=== PATIENT | male | born 1950 | race Caucasian/White ===

== ENCOUNTER 2016-07-25 13:27 | Inpatient (IN) | payer MEDICARE, MEDICAID ==
[~2016-07-25 13:27] MED LIST: Albuterol/Ipratropium 3.0-0.5 MG/3 ML Neb Soln ONE
[2016-07-25] MEDS ORDERED: Albuterol/Ipratropium 3.0-0.5 MG/3 ML Neb Soln NEB ONE ×2 (13:45→15:30)
--- NOTE | 2016-07-25 13:48 | EDM.PDOC ---
ED HPI GENERAL MEDICAL PROBLEM - General Chief Complaint: Respiratory Problem Stated Complaint: CHEST PAINS Time Seen by Provider: 07/25/16 13:28 Source of Information: Reports: Patient, Other (This provider--I was his attending provider in [place] last 48 hours while he was an inpatient) - History of Present Illness INITIAL COMMENTS - FREE TEXT/NARRATIVE: Presents to the ER reporting shortness of breath. This patient is well-known to me. On Sunday, the patient presented to the hospital and [place] where I was the attending provider. He told the nursing staff that he did not want to be seen or treated he only wanted to lay on the floor in the waiting room. The nursing staff convinced him to, and to the emergency room which he did. He was evaluated and found to be hypoxic with oxygen saturations in the low 70s and severely dyspneic. At first he refused all care but I went in and visited with him and outlined the severity of his symptoms. He then was treated with oxygen, a DuoNeb treatment, IV Solu-Medrol, IV Lasix. Throughout Sunday, July 23, 2016 the patient was hospitalized and was compliant with the course of treatment which included IV fluids do to his elevated BUN, IV Lasix do to his elevated BNP of 1269, Solu-Medrol and duonebs for his emphysema exacerbation per chest X-ray. He was not febrile and his white count was normal but he did have a productive cough with yellow sputum and thus he was started on Rocephin IV along with by mouth azithromycin. He was continued on his supplemental oxygen which kept his saturations in the low to mid 90s and his respiratory rate in the low 20s. His Toponin was negative and his EKG indicated no acute changes however there were Q waves in the inferior leads indicating a possible GA of indeterminate age. On admission the patient told us that he had not had medical care for 35 years except for 3 years ago he saw someone about a knee problem. He does not know of any medical problems. He has smoked for 55 years however he states that 3 years ago he weighed well over 350 pounds and he decided he wanted to lose weight so he put himself on a diet and lost 200 pounds. He also states that once he tried to quit smoking which he was successful with but restarted 6 months later. He states that he has a residence in [place] [facility] but really just travels around and lives in his pickup. 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 Yesterday, I was called by the hospital nurses who reported that the patient was refusing to wear his oxygen, get his respiratory treatments and take any medications. I went in and visited with the patient who was contankerous and unrealistic but stated he was acting that way because he was coughing so much "he couldn't even pee" I negotiated with him and he took some cough syrup and then wore his oxygen for about 3 hours. I was then called again because he was again refusing to wear his oxygen or take any medications and treatments. Nursing staff called a friend of his to lives in [place] who knows the patient. The friend stated that the patient is known to be stubborn and cantankerous and that he could not talk any sense into him either. I was able to get the patient to agree to take some IV medications as he told me that all oral medications are "poisons". This morning when I went to see the patient at the hospital the nursing staff told me that they had been able to get him one dose of 1 mg of IV Ativan last evening after which he slept for an hour or 2. Then he signed himself out AMA and slept in his pickup truck and the hospital parking lot for the rest of the night. This morning he was observed driving away. Law enforcement was notified as he was not safe to be driving. He was quite surprised to see me here. Apparently he got a friend to drive him over here after law enforcement stopped him this morning. I did visit with the friend who tells me that the patient is known to be very stubborn and cantankerous. He verified that the [place] [facility] and [place] had been staying in a little [place] a [place] of [facility]. The friend states that all the way over here he told the patient that he must follow the course of treatment or no one would be able to help him with his breathing problem. - Related Data Allergies Allergy/AdvReac Type Severity Reaction Status Date / Time No Known Allergies Allergy Verified 07/25/16 13:33 Home Meds: Home Meds . [No Known Home Meds] 07/25/16 [History] ED ROS GENERAL - Review of Systems Review Of Systems: See Below Constitutional: Denies: fever HEENT: Reports: No symptoms Respiratory: Reports: Shortness of Breath, Wheezing, Cough, Sputum Cardiovascular: Reports: No symptoms, Blood pressure problem. Denies: Chest pain Endocrine: Reports: no symptoms GI/Abdominal: Reports: No symptoms, Melena : Reports: no symptoms Musculoskeletal: Reports: shoulder pain (The patient states that he has had black diarrhea stool once a day for the last year. When he was hospitalized he did have a bowel movement but he would not let anyone look at) Skin: Reports: no symptoms Neurological: Reports: No Symptoms Psychiatric: Reports: No symptoms Hematologic/Lymphatic: Reports: no symptoms Immunologic: Reports: no symptoms ED EXAM, GENERAL - Physical Exam Exam: See Below Exam Limited By: No limitations General Appearance: alert, no apparent distress Ears: normal external exam Nose: normal inspection Throat/Mouth: Normal inspection Head: atraumatic, normocephalic Neck: normal inspection, full range of motion Respiratory/Chest: respiratory distress, decreased breath sounds, rhonchi, wheezing, accessory muscle use Cardiovascular: normal peripheral pulses, regular rate, rhythm, no murmur GI/Abdominal: Soft Back Exam: normal inspection Extremities: normal inspection, normal range of motion, no pedal edema Neurological: alert, oriented, other (He was visiting and laughing with the friend brought him in despite his dyspnea) Psychiatric: normal affect, normal mood Skin Exam: Warm, Dry, Intact, No rash Course - Vital Signs Last Recorded V/S: Last Vital Signs Temp 37.1 C 07/25/16 13:29 Pulse 88 07/25/16 14:47 Resp 20 07/25/16 14:47 BP 124/96 H 07/25/16 14:47 Pulse Ox 95 07/25/16 14:47 - Orders/Labs/Meds Orders: Active Orders 24 hr Category Date Time Status EKG Documentation Completion [RC] STAT Care 07/25/16 13:31 Ordered RT Aerosol Therapy [RC] ASDIRECTED Care 07/25/16 15:30 Active RT Aerosol Therapy [RC] ASDIRECTED Care 07/25/16 15:32 Active Chest 2V [CR] Stat Exams 07/25/16 15:00 Ordered Labs: Laboratory Tests 07/25/16 07/25/16 07/25/16 Range/Units 13:20 13:20 13:20 WBC 10.69 (4.0-11.0) K/uL RBC 4.80 (4.50-5.90) M/uL Hgb 15.7 (13.0-17.0) g/dL Hct 48.1 (38.0-50.0) % MCV 100.2 H (80.0-98.0) fL MCH 32.7 H (27.0-32.0) pg MCHC 32.6 (31.0-37.0) g/dL RDW Std Deviation 45.5 (28.0-62.0) fl RDW Coeff of Joni 12 (11.0-15.0) % Plt Count 249 (150-400) K/uL MPV 10.00 (7.40-12.00) fL Add Manual Diff YES Neutrophils % (Manual) 71 (48.0-80.0) % Band Neutrophils % 5 % Lymphocytes % (Manual) 19 (16.0-40.0) % Monocytes % (Manual) 5 (0.0-15.0) % Nucleated RBC % 0.0 /100WBC Absolute Seg Neuts 7.6 Band Neutrophils # 0.5 Lymphocytes # (Manual) 2.0 Monocytes # (Manual) 0.5 Nucleated RBCs # 0 K/uL Sodium 146 (136-146) mmol/L Potassium 4.4 (3.5-5.1) mmol/L Chloride 104 (98-110) mmol/L Carbon Dioxide 31 (21-31) mmol/L BUN 38 H (6.0-23.0) mg/dL Creatinine 0.8 (0.6-1.5) mg/dL Est Cr Clr Drug Dosing TNP Estimated GFR (MDRD) > 60.0 ml/min Glucose 122 H (60-110) mg/dL Calcium 9.8 (8.8-10.8) mg/dL Total Bilirubin 0.6 (0.1-1.5) mg/dL AST 48 H (5-40) IU/L ALT 51 (8-54) IU/L Alkaline Phosphatase 54 (40-150) Troponin I (0.0-0.29) NG/ML B-Natriuretic Peptide 344 H (<100) PG/ML Total Protein 7.3 (6.0-8.0) g/dL Albumin 4.1 (3.4-4.8) g/dL Globulin 3.2 (2.0-3.5) g/dL Albumin/Globulin Ratio 1.3 (1.3-2.8) 07/25/16 Range/Units 13:20 WBC (4.0-11.0) K/uL RBC (4.50-5.90) M/uL Hgb (13.0-17.0) g/dL Hct (38.0-50.0) % MCV (80.0-98.0) fL MCH (27.0-32.0) pg MCHC (31.0-37.0) g/dL RDW Std Deviation (28.0-62.0) fl RDW Coeff of Joni (11.0-15.0) % Plt Count (150-400) K/uL MPV (7.40-12.00) fL Add Manual Diff Neutrophils % (Manual) (48.0-80.0) % Band Neutrophils % % Lymphocytes % (Manual) (16.0-40.0) % Monocytes % (Manual) (0.0-15.0) % Nucleated RBC % /100WBC Absolute Seg Neuts Band Neutrophils # Lymphocytes # (Manual) Monocytes # (Manual) Nucleated RBCs # K/uL Sodium (136-146) mmol/L Potassium (3.5-5.1) mmol/L Chloride (98-110) mmol/L Carbon Dioxide (21-31) mmol/L BUN (6.0-23.0) mg/dL Creatinine (0.6-1.5) mg/dL Est Cr Clr Drug Dosing Estimated GFR (MDRD) ml/min Glucose (60-110) mg/dL Calcium (8.8-10.8) mg/dL Total Bilirubin (0.1-1.5) mg/dL AST (5-40) IU/L ALT (8-54) IU/L Alkaline Phosphatase (40-150) Troponin I < 0.10 (0.0-0.29) NG/ML B-Natriuretic Peptide (<100) PG/ML Total Protein (6.0-8.0) g/dL Albumin (3.4-4.8) g/dL Globulin (2.0-3.5) g/dL Albumin/Globulin Ratio (1.3-2.8) Meds: Medications Discontinued Medications Generic Name Dose Route Start Last Admin Trade Name Albaro PRN Reason Stop Dose Admin Albuterol/Ipratropium 3 ml 07/25/16 15:30 07/25/16 15:31 Duoneb 3.0-0.5 Mg/3 Ml NEB 07/25/16 15:31 3 ml ONETIME ONE Administration Albuterol/Ipratropium 3 ml 07/25/16 13:45 07/25/16 13:43 Duoneb 3.0-0.5 Mg/3 Ml NEB 07/25/16 13:46 3 ml ONETIME ONE Administration Methylprednisolone Sodium Succinate 125 mg 07/25/16 15:01 07/25/16 15:28 Solu-Medrol IVPUSH 07/25/16 15:02 125 mg ONETIME ONE Administration - Re-Assessments/Exams Free Text/Narrative Re-Assessment/Exam: 07/25/16 16:[address] Brandon Ferrara who agrees to admit the patient for further treatment. 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 He does want to go out and smoke. I told the patient that he was not able to smoke. He had removed a nicotine patch that I put on him over and [place] and he states that he does not want another one. Departure - Departure Time of Disposition: 16:21 Disposition: Admitted As Inpatient 66 Condition: fair Clinical Impression: COPD exacerbation - Discharge Information Forms: ED Department Discharge - My Orders Last 24 Hours: My Active Orders 07/25/16 13:31 EKG Documentation Completion [RC] STAT 07/25/16 15:00 Chest 2V [CR] Stat 07/25/16 15:30 RT Aerosol Therapy [RC] ASDIRECTED 07/25/16 15:32 RT Aerosol Therapy [RC] ASDIRECTED - Assessment/Plan Last 24 Hours: My Active Orders 07/25/16 13:31 EKG Documentation Completion [RC] STAT 07/25/16 15:00 Chest 2V [CR] Stat 07/25/16 15:30 RT Aerosol Therapy [RC] ASDIRECTED 07/25/16 15:32 RT Aerosol Therapy [RC] ASDIRECTED
[2016-07-25 14:01] LABS: CHLORIDE,CL 104 mmol/L (98-110); SODIUM,NA 146 mmol/L (136-146)
[2016-07-25] MEDS ORDERED: methylPREDNISolone Sodium Succinate 125 MG/2 ML SDV IVPUSH ONE (15:01)
--- NOTE | 2016-07-25 16:13 | CR ---
EXAMINATION: Two-view chest (PA and Lateral views). HISTORY: Shortness of breath. FINDINGS: The trachea is midline. The cardiomediastinal silhouette is within normal limits. No pulmonary infil trates, effusions or pneumothorax. There is a moderate interstitial prominence and hyperinflation. Osseous structures appear unremarkable. IMPRESSION: Interstitial prominence and hyperinflation consistent with emphysema. No acute cardiopulmonary findi ng identified.
[2016-07-25] MEDS ORDERED: Albuterol/Ipratropium 3.0-0.5 MG/3 ML Neb Soln NEB PRN (18:01)
[2016-07-25] MEDS ORDERED: Albuterol 0.083% 2.5 MG/3 ML Neb Soln NEB PRN (18:01)
[2016-07-25] MEDS ORDERED: Sodium Chloride 0.9% 10 ML Syringe FLUSH PRN (18:01)
[2016-07-25] MEDS ORDERED: Sodium Chloride 0.9% 2.5 ML Syringe FLUSH PRN (18:01)
--- NOTE | 2016-07-25 18:30 | PCM.HP ---
[id number] of Service: 07/25/16 Admit Problem/Dx: Admission Diagnosis/Problem Admission Diagnosis/Problem COPD, Severe chronic obstructive pulmonary disease - History of Present Illness Initial Comments - Free Text/Narative: 66 year old male admitted to hospital for hypoxia. He denies any known pmh and states he does not take medications because he does not believe in them. 3 weeks ago he developed chest congestion, sob and cee. His symptoms have been worsening and now he is unable to walk a few steps without feeling sob. He also reports some intermittent swelling of both feet that is not currently present. He states that this is the first time he has had such bad SOB an CEE. He smokes 2-3 ppd. He admits to past history of alcohol abuse about 25 years ago. He states he was recently admitted in [facility] for his sob and he remained hospitalized for 4 days. He was told he had CHF, COPD and that he jackson possibly had a heart attack recently. He was unaware of either of these diagnosis before. He denies fever, chills, chest pain, palpitations, numbness, tingling, weakness, headache, vision disturbance, syncope or calf pain. While in the ED here he was hypoxic with O2 sat 70-80's. He was given O2 via LFNC. EKG showed sinus tachycardia, with LAD and incomplete lbbb. He had basic labwork done that had no significant abnormalities. CXR was suggestive of Emphysema and chronic lung changes with no acute changes or effusions. He was given Solumedrol 125 mg IV and 2 doses of duonebs. Patient states the duonebs do nothing for him and he does not want to take them. - Related Data Allergies/Adverse Reactions: Allergies Allergy/AdvReac Type Severity Reaction Status Date / Time No Known Allergies Allergy Verified 07/25/16 13:33 Home Medications: Home Meds Albuterol [Proventil HFA] 2 puff INH Q4H #1 inhaler 07/28/16 [Rx] Fluticasone/Salmeterol [Advair Diskus 500-50] 1 puff INH BID #1 diskus 07/28/16 [Rx] Lisinopril [Prinivil] 10 mg PO DAILY #30 tablet 07/28/16 [Rx] Metoprolol Succinate [Toprol XL] 25 mg PO DAILY #30 tab.er 07/28/16 [Rx] predniSONE 10 mg PO .TAPER #28 tablet 07/28/16 [Rx] Past Medical History - Past Health History Medical/Surgical History: Denies Medical/Surgical History Cardiovascular History: Reports: Heart Failure, DE Respiratory History: Reports: Other (See Below) Other Respiratory History: emphysema - Infectious Disease History Infectious Disease History: Reports: Chicken Pox, Measles, Mumps Social & Family History - Family History Family Medical History: Noncontributory - Tobacco Use Smoking Status *Q: Current Every Day Smoker Years of Tobacco use: 55 Packs/Tins Daily: 1 - Caffeine Use Caffeine Use: Reports: Soda - Recreational Drug Use Recreational Drug Use: No H&P Review of Systems - Review of Systems: Review Of Systems: See Below General: Reports: Fatigue. Denies: Fever, Chills, Malaise, Weakness, Night Sweats, Diaphoresis, Decreased Appetite, Weight Loss HEENT: Reports: No Symptoms. Denies: Rhinitis, Sinus Congestion, Sore Throat Pulmonary: Reports: Shortness of Breath, Wheezing, Cough, Sputum Cardiovascular: Reports: Dyspnea on Exertion Gastrointestinal: Reports: No Symptoms Genitourinary: Reports: No Symptoms Musculoskeletal: Reports: No Symptoms Skin: Reports: No Symptoms Psychiatric: Reports: No Symptoms Hematologic/Lymphatic: Reports: No Symptoms Immunologic: Reports: No Symptoms Exam - Exam Exam: See Below - Vital Signs Vital Signs: Last Vital Signs Temp 36.9 C 07/25/16 17:24 Pulse 89 07/25/16 17:24 Resp 23 H 07/25/16 17:24 BP 174/98 H 07/25/16 17:24 Pulse Ox 94 L 07/25/16 17:24 Weight: 81.7 kg - Exam Quality Assessment: Supplemental Oxygen General: Alert, Oriented HEENT: Conjunctiva Clear, EACs Clear, EOMI, Hearing Intact, Posterior Pharynx Clear, Pupils Equal, Pupils Reactive, TMs Clear Neck: Supple, Trachea Midline, +2 Carotid Pulse wo Bruit. No: Lymphadenopathy, JVD Lungs: Decreased Breath Sounds, Crackles, Wheezing Cardiovascular: Regular Rhythm, Tachycardia Abdomen: Normal Bowel Sounds, Soft Back Exam: Normal Inspection Extremities: Normal Inspection. No: Cyanosis, Calf Tenderness, Edema Peripheral Pulses: 2+: Dorsalis Pedis (L), Dorsalis Pedis (R) Neurological: Reflexes Equal Bilateral Neuro Extensive - Mental Status: Alert, Oriented x3 Psychiatric: Agitated - Patient Data Result Diagrams: 07/25/16 13:20 07/25/16 13:20 *Q Meaningful Use (ADM) - VTE *Q VTE Criteria *Q: - Stroke *Q Stroke Criteria *Q: - AMI *Q AMI Criteria *Q: Problem List Initiated/Reviewed/Updated: Yes Orders Last 24hrs: Active Orders 24 hr Category Date Time Status Patient Status [ADT] Routine ADT 07/25/16 18:01 Ordered Height and Weight [RC] DAILY Care 07/25/16 18:01 Ordered Intake and Output [RC] Q4HR Care 07/25/16 18:06 Ordered May Shower [RC] ASDIRECTED Care 07/25/16 18:01 Ordered Oxygen Therapy [RC] PRN Care 07/25/16 18:01 Ordered Pulse Oximetry [RC] CONTINUOUS Care 07/25/16 18:06 Ordered RT Aerosol Therapy [RC] ASDIRECTED Care 07/25/16 18:11 Ordered Up ad Bebe [RC] ASDIRECTED Care 07/25/16 18:01 Ordered VTE/DVT Education [RC] PER UNIT ROUTINE Care 07/25/16 18:01 Ordered Vital Signs [RC] Q4H Care 07/25/16 18:01 Ordered Regular Diet [DIET] Diet 07/25/16 Dinner Active Echo 2D wo Cont [US] Routine Exams 07/25/16 18:12 Ordered BASIC METABOLIC PANEL,BMP [CHEM] AM Lab 07/26/16 05:11 Ordered CBC WITH AUTO DIFF [HEME] AM Lab 07/26/16 05:11 Ordered GLYCOSYLATED HEMOGLOBIN,HGBA1C [CHEM] Routine Lab 07/25/16 18:01 Ordered Albuterol [Proventil Neb Soln] Med 07/25/16 18:01 Ordered 2.5 mg NEB Q2H PRN Albuterol/Ipratropium [DuoNeb 3.0-0.5 MG/3 ML] Med 07/25/16 18:01 Ordered 3 ml NEB Q4HRRT PRN Enoxaparin [Lovenox] Med 07/26/16 09:00 Ordered 40 mg SUBCUT DAILY Sodium Chloride 0.9% [Saline Flush] Med 07/25/16 18:01 Ordered 10 ml FLUSH ASDIRECTED PRN Sodium Chloride 0.9% [Saline Flush] Med 07/25/16 18:01 Ordered 2.5 ml FLUSH ASDIRECTED PRN Saline Lock Insert [OM.PC] Routine Oth 07/25/16 18:01 Ordered Resuscitation Status Routine Resus Stat 07/25/16 18:01 Ordered Medication Orders Albuterol (Proventil Neb Soln) 2.5 mg NEB Q2H PRN PRN Reason: Shortness Of Breath/wheezing Albuterol/Ipratropium (Duoneb 3.0-0.5 Mg/3 Ml) 3 ml NEB Q4HRRT PRN PRN Reason: Shortness Of Breath/wheezing Enoxaparin Sodium (Lovenox) 40 mg SUBCUT DAILY CATHERINE Sodium Chloride (Saline Flush) 10 ml FLUSH ASDIRECTED PRN PRN Reason: Keep Vein Open Sodium Chloride (Saline Flush) 2.5 ml FLUSH ASDIRECTED PRN PRN Reason: Keep Vein Open Assessment/Plan Comment:: assessment: 66 yo male smoker with history of non-adherence to medications and medical instructions admitted for Hypoxia secondary to Emphysema plan: 1. admit to observation 2. Continuous Pulse Ox & O2 via LFNC to maintain O2 sat 88-92 3. Patient refusing Duonebs therefore we will start Albuterol Inhaler 2 puffs q4h & Advair 2 puffs BID. Will leave Duonebs a PRN order incase he develops acute SOB 4. based on records this patient may have had elevated BNP in 900's in [place] and was treated with Lasix. We will obtain records from [place] to confirm this. Also order Echo to evaluate for possible CHF 5. Patient received Solumedrol in ED but is now refusing it. Re-evaluate tomorrow 6. check HbA1C to r/o underlying DM for his hyperglycemia 7. repeat cbc and bmp in AM 8. Lovenox 40 mg SC for DVT prophylaxis 9. as per orders <Brandon Ferrara - Last Filed: 08/02/16 15:35> H&P History of Present Illness - General Admit Problem/Dx: Admission Diagnosis/Problem Admission Diagnosis/Problem COPD, Severe chronic obstructive pulmonary disease Exam - Vital Signs Vital Signs: Last Vital Signs Temp 36.8 C 07/28/16 07:50 Pulse 64 07/28/16 08:05 Resp 20 07/28/16 07:50 BP 182/75 H 07/28/16 08:06 Pulse Ox 90 L 07/28/16 07:50 - Patient Data Result Diagrams: 07/28/16 04:38 07/28/16 04:38 *Q Meaningful Use (ADM) - VTE *Q VTE Criteria *Q: - Stroke *Q Stroke Criteria *Q: - AMI *Q AMI Criteria *Q: - Free Text/Narrative Note: I have seen and examined patient. I have discussed treatment plan with resident. I agree with the assessment and plan outlined in the following resident's note.
[2016-07-25] MEDS: Fluticasone/Salmeterol 500-50 MCG Inhalation Powder 14/Diskus INH SCH ×2 (19:10→20:44)
[2016-07-25] MEDS: Albuterol 6.7 GM Inhaler INH SCH ×2 (19:31→21:56)
[2016-07-26] MEDS: Albuterol 6.7 GM Inhaler INH SCH ×6 (02:20→21:46)
[2016-07-26 05:35] LABS: CHLORIDE,CL 103 mmol/L (98-110); SODIUM,NA 143 mmol/L (136-146)
--- NOTE | 2016-07-26 08:58 | PCM.PN ---
- General Info Date of Service: 07/26/16 Admission Dx/Problem (Free Text): Hypoxia secondary to Emphysema Subjective Update: Patient is doing much better today. He is currently on 3L O2. No significant overnight events. He is still refusing all medications except inhalers and now is willing to take second shot of steroids. Functional Status: Reports: pain controlled, tolerating diet, ambulating, urinating - Review of Systems General: Reports: No Symptoms HEENT: Reports: no symptoms Pulmonary: Reports: cough, wheezing. Denies: shortness of breath Cardiovascular: Reports: Dyspnea on Exertion. Denies: Chest Pain, Palpitations , Orthopnea, PND, Edema Gastrointestinal: Reports: No symptoms Genitourinary: Reports: no symptoms Musculoskeletal: Reports: no symptoms Skin: Reports: no symptoms Neurological: Reports: No Symptoms Psychiatric: Reports: no symptoms - Patient Data Vitals - most recent: Last Vital Signs Temp 37.1 C 07/26/16 08:00 Pulse 78 07/26/16 08:00 Resp 18 07/26/16 08:00 BP 131/89 07/26/16 08:00 Pulse Ox 95 07/26/16 08:00 Weight - most recent: 81.4 kg I&O - last 24 hours: Intake & Output 07/25/16 07/26/16 07/26/16 22:59 06:59 14:59 Intake Total 1100 Balance 1100 Lab Results last 24 hrs: Laboratory Results - last 24 hr 07/26/16 07/26/16 Range/Units 04:47 04:47 WBC 6.43 (4.0-11.0) K/uL RBC 4.66 (4.50-5.90) M/uL Hgb 14.8 (13.0-17.0) g/dL Hct 46.6 (38.0-50.0) % MCV 100.0 H (80.0-98.0) fL MCH 31.8 (27.0-32.0) pg MCHC 31.8 (31.0-37.0) g/dL RDW Std Deviation 45.3 (28.0-62.0) fl RDW Coeff of Joni 12 (11.0-15.0) % Plt Count 258 (150-400) K/uL MPV 10.20 (7.40-12.00) fL Add Manual Diff YES Neutrophils % (Manual) 70 (48.0-80.0) % Band Neutrophils % 4 % Lymphocytes % (Manual) 21 (16.0-40.0) % Monocytes % (Manual) 5 (0.0-15.0) % Nucleated RBC % 0.0 /100WBC Absolute Seg Neuts 4.5 Band Neutrophils # 0.3 Lymphocytes # (Manual) 1.4 Monocytes # (Manual) 0.3 Nucleated RBCs # 0 K/uL Sodium 143 (136-146) mmol/L Potassium 4.3 (3.5-5.1) mmol/L Chloride 103 (98-110) mmol/L Carbon Dioxide 30 (21-31) mmol/L BUN 35 H (6.0-23.0) mg/dL Creatinine 0.7 (0.6-1.5) mg/dL Est Cr Clr Drug Dosing 103.81 mL/min Estimated GFR (MDRD) > 60.0 ml/min Glucose 144 H (60-110) mg/dL Calcium 9.6 (8.8-10.8) mg/dL Med Orders - Current: Current Medications Albuterol (Proventil Neb Soln) 2.5 mg NEB Q2H PRN PRN Reason: Shortness Of Breath/wheezing Albuterol (Proventil Hfa) 0 gm INH Q4H CATHERINE Last Admin: 07/26/16 05:55 Dose: 2 puff Albuterol/Ipratropium (Duoneb 3.0-0.5 Mg/3 Ml) 3 ml NEB Q4HRRT PRN PRN Reason: Shortness Of Breath/wheezing Last Admin: 07/26/16 03:49 Dose: 3 ml Enoxaparin Sodium (Lovenox) 40 mg SUBCUT DAILY [facility] Fluticasone/Salmeterol (Advair Diskus 500-50) 1 puff INH BID CATHERINE Last Admin: 07/25/16 20:44 Dose: Not Given Sodium Chloride (Saline Flush) 10 ml FLUSH ASDIRECTED PRN PRN Reason: Keep Vein Open Sodium Chloride (Saline Flush) 2.5 ml FLUSH ASDIRECTED PRN PRN Reason: Keep Vein Open Discontinued Medications Albuterol/Ipratropium (Duoneb 3.0-0.5 Mg/3 Ml) 3 ml NEB ONETIME ONE Stop: 07/25/16 15:31 Last Admin: 07/25/16 15:31 Dose: 3 ml Albuterol/Ipratropium (Duoneb 3.0-0.5 Mg/3 Ml) 3 ml NEB ONETIME ONE Stop: 07/25/16 13:46 Last Admin: 07/25/16 13:43 Dose: 3 ml Albuterol/Ipratropium (Duoneb 3.0-0.5 Mg/3 Ml) Confirm Administered Dose 3 ml .ROUTE .STK-MED ONE Stop: 07/25/16 13:19 Methylprednisolone Sodium Succinate (Solu-Medrol) 125 mg IVPUSH ONETIME ONE Stop: 07/25/16 15:02 Last Admin: 07/25/16 15:28 Dose: 125 mg - Exam Quality Assessment: supplemental oxygen General: alert, oriented HEENT: Pupils equal, Pupils reactive, EOMI, Mucous membr. moist/pink Neck: supple Lungs: Decreased breath sounds, Crackles, Wheezing, Other (poor aeration) Cardiovascular: Regular Rate, Regular Rhythm Back Exam: normal inspection, full range of motion Extremities: no edema Peripheral Pulses: 2+: dorsalis pedis (L), dorsalis pedis (R) Skin: warm, dry, intact Wound/Incisions: healing well Neurological: no new focal deficit Psy/Mental Status: alert - Problem List Review Problem List Initiated/Reviewed/Updated: Yes - My Orders Last 24 Hours: My Active Orders 07/25/16 18:01 Height and Weight [RC] DAILY May Shower [RC] ASDIRECTED Oxygen Therapy [RC] PRN Up ad Bebe [RC] ASDIRECTED VTE/DVT Education [RC] PER UNIT ROUTINE Vital Signs [RC] Q4H Albuterol [Proventil Neb Soln] 2.5 mg NEB Q2H PRN Albuterol/Ipratropium [DuoNeb 3.0-0.5 MG/3 ML] 3 ml NEB Q4HRRT PRN Sodium Chloride 0.9% [Saline Flush] 10 ml FLUSH ASDIRECTED PRN Sodium Chloride 0.9% [Saline Flush] 2.5 ml FLUSH ASDIRECTED PRN Saline Lock Insert [OM.PC] Routine Resuscitation Status Routine 07/25/16 18:06 Intake and Output [RC] Q4HR Pulse Oximetry [RC] CONTINUOUS 07/25/16 18:11 RT Aerosol Therapy [RC] ASDIRECTED 07/25/16 18:35 RT Post Treatment Assessment [RC] Click To Edit RT Pre-Treatment Assessment [RC] Click To Edit 07/25/16 18:45 Albuterol [Proventil HFA] 0 gm INH Q4H Fluticasone/Salmeterol [Advair Diskus 500-50] 1 puff INH BID 07/25/16 Dinner Regular Diet [DIET] 07/26/16 09:00 Enoxaparin [Lovenox] 40 mg SUBCUT DAILY 07/26/16 18:12 Echo Comp wo Cont [US] Routine - Plan Plan:: 66 yo male smoker with history of non-adherence to medications and medical instructions admitted for Hypoxia secondary to Emphysema assessment: 1. Hypoxia, secondary to Emphysema -no SOB at rest -O2 sat 90% on 3L O2 via LFNC -currently on Albuterol INH [id number] & Advair BID -refusing Duonebs -breath sounds diminished, poor aeration, diffuse crackles & wheezing 2. HTN -BP range 120-190/80-112 -patient refusing medications -no current signs of end organ damage 3. Non-adherence to medications -patient refusing all medications other than inhalers plan: 1. continue Albuterol and Advair 2. administer Solu-medrol 125, patient has agreed to take today 3. consider weaning off O2 in evening 4. Educated patient on risks associated with non-adherence to medications, especially for untreated hypertension. Patient acknowledges understanding 5. as per orders
[2016-07-26] MEDS: Enoxaparin 40 MG/0.4 ML Syringe SUBCUT SCH (09:04)
[2016-07-26] MEDS: Fluticasone/Salmeterol 500-50 MCG Inhalation Powder 14/Diskus INH SCH ×2 (09:06→20:32)
[2016-07-26] MEDS: methylPREDNISolone Sodium Succinate 125 MG/2 ML SDV IVPUSH SCH (10:01)
[2016-07-26] MEDS: Lisinopril 10 MG Tab PO SCH (19:48)
[2016-07-27] MEDS: Albuterol 6.7 GM Inhaler INH SCH ×6 (02:22→21:45)
[2016-07-27 05:08] LABS: CHLORIDE,CL 102 mmol/L (98-110); SODIUM,NA 145 mmol/L (136-146)
[2016-07-27] MEDS: Lisinopril 10 MG Tab PO SCH (09:06)
[2016-07-27] MEDS: Enoxaparin 40 MG/0.4 ML Syringe SUBCUT SCH (09:07)
[2016-07-27] MEDS: methylPREDNISolone Sodium Succinate 125 MG/2 ML SDV IVPUSH SCH (09:07)
[2016-07-27] MEDS: Fluticasone/Salmeterol 500-50 MCG Inhalation Powder 14/Diskus INH SCH ×2 (09:08→21:45)
--- NOTE | 2016-07-27 11:04 | PCM.PN ---
- General Info Date of Service: 07/27/16 Admission Dx/Problem (Free Text): Hypoxia secondary to Emphysema Subjective Update: Patient is doing much better today. He is currently on 2L O2. No significant overnight events. Patient agreed to starting medication for HTN yesterday. He agrees to following our instructions for management of emphysema and CHF. Functional Status: Reports: pain controlled, tolerating diet, ambulating, urinating - Review of Systems General: Reports: No Symptoms HEENT: Reports: no symptoms Pulmonary: Reports: cough, sputum, wheezing Cardiovascular: Reports: Dyspnea on Exertion Gastrointestinal: Reports: No symptoms Genitourinary: Reports: no symptoms Musculoskeletal: Reports: no symptoms Skin: Reports: no symptoms Neurological: Reports: No Symptoms Psychiatric: Reports: no symptoms - Patient Data Vitals - most recent: Last Vital Signs Temp 36.6 C 07/27/16 07:51 Pulse 63 07/27/16 07:51 Resp 18 07/27/16 07:51 BP 162/88 H 07/27/16 09:06 Pulse Ox 90 L 07/27/16 07:51 Weight - most recent: 83.96 kg I&O - last 24 hours: Intake & Output 07/26/16 07/27/16 07/27/16 22:59 06:59 14:59 Intake Total 600 900 Output Total 400 460 Balance 200 440 Lab Results last 24 hrs: Laboratory Results - last 24 hr 07/27/16 Range/Units 04:35 Sodium 145 (136-146) mmol/L Potassium 4.0 (3.5-5.1) mmol/L Chloride 102 (98-110) mmol/L Carbon Dioxide 35 H (21-31) mmol/L BUN 30 H (6.0-23.0) mg/dL Creatinine 0.8 (0.6-1.5) mg/dL Est Cr Clr Drug Dosing 90.53 mL/min Estimated GFR (MDRD) > 60.0 ml/min Glucose 142 H (60-110) mg/dL Calcium 9.6 (8.8-10.8) mg/dL Med Orders - Current: Current Medications Albuterol (Proventil Neb Soln) 2.5 mg NEB Q2H PRN PRN Reason: Shortness Of Breath/wheezing Albuterol (Proventil Hfa) 0 gm INH Q4H CATHERINE Last Admin: 07/27/16 10:37 Dose: 2 puff Albuterol/Ipratropium (Duoneb 3.0-0.5 Mg/3 Ml) 3 ml NEB Q4HRRT PRN PRN Reason: Shortness Of Breath/wheezing Last Admin: 07/26/16 03:49 Dose: 3 ml Enoxaparin Sodium (Lovenox) 40 mg SUBCUT DAILY [facility] Last Admin: 07/27/16 09:07 Dose: 40 mg Lisinopril (Prinivil) 10 mg PO DAILY [facility] Last Admin: 07/27/16 09:06 Dose: 10 mg Methylprednisolone Sodium Succinate (Solu-Medrol) 125 mg IVPUSH DAILY [facility] Last Admin: 07/27/16 09:07 Dose: 125 mg Metoprolol Succinate (Toprol Xl) 25 mg PO DAILY [facility] Fluticasone/Salmeterol (Advair Diskus 500-50) 1 puff INH BID [facility] Last Admin: 07/27/16 09:08 Dose: 1 puff Sodium Chloride (Saline Flush) 10 ml FLUSH ASDIRECTED PRN PRN Reason: Keep Vein Open Sodium Chloride (Saline Flush) 2.5 ml FLUSH ASDIRECTED PRN PRN Reason: Keep Vein Open Discontinued Medications Albuterol/Ipratropium (Duoneb 3.0-0.5 Mg/3 Ml) 3 ml NEB ONETIME ONE Stop: 07/25/16 15:31 Last Admin: 07/25/16 15:31 Dose: 3 ml Albuterol/Ipratropium (Duoneb 3.0-0.5 Mg/3 Ml) 3 ml NEB ONETIME ONE Stop: 07/25/16 13:46 Last Admin: 07/25/16 13:43 Dose: 3 ml Albuterol/Ipratropium (Duoneb 3.0-0.5 Mg/3 Ml) Confirm Administered Dose 3 ml .ROUTE .STK-MED ONE Stop: 07/25/16 13:19 Last Admin: 07/26/16 12:56 Dose: Not Given Methylprednisolone Sodium Succinate (Solu-Medrol) 125 mg IVPUSH ONETIME ONE Stop: 07/25/16 15:02 Last Admin: 07/25/16 15:28 Dose: 125 mg - Exam Quality Assessment: supplemental oxygen General: alert, oriented, cooperative Neck: supple, no JVD Lungs: Decreased breath sounds, Crackles, Wheezing Cardiovascular: Regular Rate, Regular Rhythm Extremities: no edema Peripheral Pulses: 2+: dorsalis pedis (L), dorsalis pedis (R) - Problem List Review Problem List Initiated/Reviewed/Updated: Yes - My Orders Last 24 Hours: My Active Orders 07/26/16 18:12 Echo Comp wo Cont [US] Routine 07/26/16 18:44 RT Chest Physiotherapy [RC] ASDIRECTED 07/26/16 18:45 Lisinopril [Prinivil] 10 mg PO DAILY 07/27/16 11:00 Metoprolol Succinate [Toprol XL] 25 mg PO DAILY - Plan Plan:: 07/27/16 66 yo male smoker with history of non-adherence to medications and medical instructions admitted for Hypoxia, Emphysema, COPD. Started on Lisinopril for untrated HTN. Echo was done yesterday which revealed HFrEF with EF 35-40%. Patient continues to desaturate to low 80's with ambulation. 1. Hypoxia -continue Albuterol, Advair & Solumedrol -continue to attempt to wean off O2 - patient was informed of possiblity of needing to to discharged on home O2 2. Emphysema -start Chest PT 3. HTN & HFrEF -continue Lisinopril 10 mg daily -start Metoprolol ER 25 mg daily -strict I&O's and Daily weight checks 4. continue all other management as per orders 07/26/16 assessment: 1. Hypoxia, secondary to Emphysema -no SOB at rest -O2 sat 90% on 3L O2 via LFNC -currently on Albuterol INH [id number] & Advair BID -refusing Duonebs -breath sounds diminished, poor aeration, diffuse crackles & wheezing 2. HTN -BP range 120-190/80-112 -patient refusing medications -no current signs of end organ damage 3. Non-adherence to medications -patient refusing all medications other than inhalers plan: 1. continue Albuterol and Advair 2. administer Solu-medrol 125, patient has agreed to take today 3. consider weaning off O2 in evening 4. Educated patient on risks associated with non-adherence to medications, especially for untreated hypertension. Patient acknowledges understanding 5. as per orders
[2016-07-27] MEDS: Metoprolol Succinate 25 MG Tab.ER PO SCH (11:51)
--- NOTE | 2016-07-27 16:09 | ECHO ---
The echocardiogram report can be seen in this patient's EMR in the Reports section. TAYLA
[2016-07-28] MEDS: Albuterol 6.7 GM Inhaler INH SCH ×3 (03:05→12:16)
--- NOTE | 2016-07-28 05:13 | PCM.DCSUM1 ---
Discharge Summary - Hospital Course Free Text/Narrative:: 66 yo male was admitted 07/25/16 for Hypoxia and Emphysema. He is a smoker but had no confirmed pmh however the patient stated that he does not go to see doctors and does not believe in medications. While hospitalized he was also found to have HTN and echo was done which revealed HFrEF 35-40%. After much convincing patient did agree to take medications. For his emphysema and hypoxia he was treated with O2 via LFNC, Solumedrol IV, Albuterol INH & Advair INH. For HTN & HFrEF he was started on Lisinopril 10 mg daily and Metoprolol ER 25 mg daily. Patient was educated on the importance of controlling his BP due to his development of HF. He was also told that he will need to establish care with a PCP to follow his BP because he will likely need higher doses to control his bp but the doses must be increased gradually. Patient acknowledged understanding and agreed to start taking his medications and establishing care with a PCP. On 07/28/16 his respiratory exam improved however we were unable to wean him off Oxygen. He was requiring 3L O2 during sleep and 2-3L O2 while awake. He agreed to be sent home on Oxyen and therefore he was discharged from the hospital on 03/04. He lives in [place] and we offered to find him a pcp to schedule appointment with but he stated he will find one on his own. He was discharged home on Home O2, Lisinoprol 10 mg daily, Metoprolol ER 25 mg daily and Prednisone taper. Educated him on the importance of stopping smoking. Admission Diagnosis: 1. Hypoxia 2. Emphysema 3. Non-adherence to Medications and Instructions Discharge Diagnosis: 1. Hypoxia, secondary to Emphysema -Continuous Home O2 @ 3L -Prednisone taper -Albuterol Inhaler q4-6 hours -Advair BID -smoking cessation -f/u with PCP 2. HTN, newly confirmed diagnosis -Lisinopril 10 mg Daily -Metoprolol ER 25 mg Daily -f/u with PCP 3. HFrEF, stable -as per #2 4. Non-adherence to medical management -patient was educated and now appears to be more conscious of health -He was offered appointment with PCP prior to DC but he stated he will find one on his own -He was given refills for medication incase he fails to follow-up - Discharge Data Discharge Date: 07/28/16 Discharge Disposition: Home, Self-Care 01 Condition: Fair - Patient Instructions Diet: Heart Healthy Diet Activity: As Tolerated Notify Provider of: Swelling and Redness - Discharge Plan Prescriptions/Med Rec: Albuterol [Proventil HFA] 2 puff INH Q4H #1 inhaler Fluticasone/Salmeterol [Advair Diskus 500-50] 1 puff INH BID #1 diskus Lisinopril [Prinivil] 10 mg PO DAILY #30 tablet Metoprolol Succinate [Toprol XL] 25 mg PO DAILY #30 tab.er predniSONE 10 mg PO .TAPER #28 tablet Home Medications: Home Meds Albuterol [Proventil HFA] 2 puff INH Q4H #1 inhaler 07/28/16 [Rx] Fluticasone/Salmeterol [Advair Diskus 500-50] 1 puff INH BID #1 diskus 07/28/16 [Rx] Lisinopril [Prinivil] 10 mg PO DAILY #30 tablet 07/28/16 [Rx] Metoprolol Succinate [Toprol XL] 25 mg PO DAILY #30 tab.er 07/28/16 [Rx] predniSONE 10 mg PO .TAPER #28 tablet 07/28/16 [Rx] Patient Handouts: Albuterol inhalation powder, Fluticasone; Salmeterol inhalation powder, Chronic Obstructive Pulmonary Disease, [id number], Lisinopril tablets, Prednisone tablets Referrals: PCP,None [Primary Care Provider] - - Discharge Summary/Plan Comment DC Time >30 min.: No - Patient Data Vitals - Most Recent: Last Vital Signs Temp 36.9 C 07/28/16 00:00 Pulse 60 07/28/16 00:00 Resp 22 H 07/28/16 00:00 BP 159/91 H 07/28/16 00:00 Pulse Ox 100 07/28/16 00:00 Weight - Most Recent: 83.96 kg I&O - Last 24 hours: Intake & Output 07/27/16 07/27/16 07/28/16 14:59 22:59 06:59 Intake Total 800 Output Total 600 Balance 200 Lab Results - Last 24 hrs: Laboratory Results - last 24 hr 07/27/16 Range/Units 04:35 Sodium 145 (136-146) mmol/L Potassium 4.0 (3.5-5.1) mmol/L Chloride 102 (98-110) mmol/L Carbon Dioxide 35 H (21-31) mmol/L BUN 30 H (6.0-23.0) mg/dL Creatinine 0.8 (0.6-1.5) mg/dL Est Cr Clr Drug Dosing 90.53 mL/min Estimated GFR (MDRD) > 60.0 ml/min Glucose 142 H (60-110) mg/dL Calcium 9.6 (8.8-10.8) mg/dL Med Orders - Current: Current Medications Albuterol (Proventil Neb Soln) 2.5 mg NEB Q2H PRN PRN Reason: Shortness Of Breath/wheezing Albuterol (Proventil Hfa) 0 gm INH Q4H [facility] Last Admin: 07/28/16 03:05 Dose: 2 puff Albuterol/Ipratropium (Duoneb 3.0-0.5 Mg/3 Ml) 3 ml NEB Q4HRRT PRN PRN Reason: Shortness Of Breath/wheezing Last Admin: 07/26/16 03:49 Dose: 3 ml Enoxaparin Sodium (Lovenox) 40 mg SUBCUT DAILY [facility] Last Admin: 07/27/16 09:07 Dose: 40 mg Lisinopril (Prinivil) 10 mg PO DAILY [facility] Last Admin: 07/27/16 09:06 Dose: 10 mg Methylprednisolone Sodium Succinate (Solu-Medrol) 125 mg IVPUSH DAILY [facility] Last Admin: 07/27/16 09:07 Dose: 125 mg Metoprolol Succinate (Toprol Xl) 25 mg PO DAILY [facility] Last Admin: 07/27/16 11:51 Dose: 25 mg Fluticasone/Salmeterol (Advair Diskus 500-50) 1 puff INH BID [facility] Last Admin: 07/27/16 21:45 Dose: 1 puff Sodium Chloride (Saline Flush) 10 ml FLUSH ASDIRECTED PRN PRN Reason: Keep Vein Open Sodium Chloride (Saline Flush) 2.5 ml FLUSH ASDIRECTED PRN PRN Reason: Keep Vein Open Discontinued Medications Albuterol/Ipratropium (Duoneb 3.0-0.5 Mg/3 Ml) 3 ml NEB ONETIME ONE Stop: 07/25/16 15:31 Last Admin: 07/25/16 15:31 Dose: 3 ml Albuterol/Ipratropium (Duoneb 3.0-0.5 Mg/3 Ml) 3 ml NEB ONETIME ONE Stop: 07/25/16 13:46 Last Admin: 07/25/16 13:43 Dose: 3 ml Albuterol/Ipratropium (Duoneb 3.0-0.5 Mg/3 Ml) Confirm Administered Dose 3 ml .ROUTE .STK-MED ONE Stop: 07/25/16 13:19 Last Admin: 07/26/16 12:56 Dose: Not Given Methylprednisolone Sodium Succinate (Solu-Medrol) 125 mg IVPUSH ONETIME ONE Stop: 07/25/16 15:02 Last Admin: 07/25/16 15:28 Dose: 125 mg *Q Meaningful Use (DIS) - VTE *Q VTE Criteria *Q: - Stroke *Q Stroke Criteria *Q: - AMI *Q AMI Criteria *Q:
[2016-07-28 05:57] LABS: CHLORIDE,CL 103 mmol/L (98-110); SODIUM,NA 145 mmol/L (136-146)
[2016-07-28 07:52] VITALS: BP 182/75
[2016-07-28] MEDS: methylPREDNISolone Sodium Succinate 125 MG/2 ML SDV IVPUSH SCH (08:05)
[2016-07-28] MEDS: Metoprolol Succinate 25 MG Tab.ER PO SCH (08:05)
[2016-07-28] MEDS: Enoxaparin 40 MG/0.4 ML Syringe SUBCUT SCH (08:05)
[2016-07-28] MEDS: Lisinopril 10 MG Tab PO SCH (08:06)
[2016-07-28] MEDS: Fluticasone/Salmeterol 500-50 MCG Inhalation Powder 14/Diskus INH SCH (08:57)
== END 2016-07-28 12:14 | disposition home or self-care (01) | DRG 206 ==
LOC: MW.ED 13:27 → MW.MS 16:15
PROVIDERS: ADMIT Internal Medicine; ATTEND Internal Medicine
DX: J44.1 Chronic obstructive pulmonary disease with (acute) exacerbation (principal); R09.02 Hypoxemia; I50.20 Unspecified systolic (congestive) heart failure; J43.9 Emphysema, unspecified; I10 Essential (primary) hypertension; F17.210 Nicotine dependence, cigarettes, uncomplicated; Z91.14 Patient's other noncompliance with medication regimen; Z79.899 Other long term (current) drug therapy
CPT/HCPCS: 36415; 71020; 80053; 83036; 83880; 84484; 85025; 93005; 94640; 96374; 99285; J2930; 80048; 93306; 94664; 94667; A9270-GY; J1650